=== PATIENT | female | born 1995 | race Two or more races ===

== ENCOUNTER → 2017-06-04 | Emergency (ER) | payer OTHER | END | disposition left against medical advice (07) | LOC: ER 19:26 | DX: Z53.20 Procedure and treatment not carried out because of patient's decision for unspecified reasons (principal) ==

== ENCOUNTER → 2017-06-21 | Emergency (ER) | payer OTHER ==
[~2017-06-21] VITALS: Ht 154.9 cm; Wt 74.4 kg
[~2017-06-21] MED LIST: OBSTETRIX DHA1 EACH
== END | disposition home or self-care (01) ==
LOC: ER 12:50
DX: Z34.01 Encounter for supervision of normal first pregnancy, first trimester (principal); O20.0 Threatened abortion